=== PATIENT | male | born 1940 | race Caucasian/White ===

== ENCOUNTER 2019-11-27 13:41 | Day surgery (SDC) | payer MEDICARE, OTHER ==
[~2019-11-27] VITALS: Ht 172.7 cm; Wt 97.6 kg
[2019-11-27] VITALS (7 sets, daily range): BP systolic 142–160; BP diastolic 55–72; PULSE 47–58; TEMP 97.6–98
[~2019-11-27 13:41] MED LIST: LIPITOR 10MG10 MG PO; TOPROL XL 25MG25 MG PO
[2019-11-27] MEDS ORDERED: CENTRUM SILVER1 CTB PO (14:09)
[2019-11-27] MEDS ORDERED: PRINIVIL20 MG PO (14:10)
[2019-11-27] MEDS ORDERED: ASPIRIN 81M81 MG/TA2 PO (14:10)
[2019-11-27] MEDS ORDERED: ELIQUIS 2.5 PO (14:11)
[2019-11-27] MEDS ORDERED: OCUVITE1 TA1 PO (14:11)
[2019-11-27] MEDS ORDERED: IRON TABLETS325 MG PO (14:12)
[2019-11-27] MEDS ORDERED: ZYRTEC 10MG10 MG PO (14:13)
[2019-11-27 14:52] LABS: CALCIUM 9.8 mg/dL (8.4-10.2); CREATININE, serum 1.19 (0.66-1.25); POTASSIUM 4.6 mmol/L (3.4-5.0)
--- NOTE | 2019-11-27 17:32 | NUR ---
RECIEVED REPORT ON PT.
--- NOTE | 2019-11-27 17:43 | NUR ---
PT ARRIVED TO FLOOR, AOX4, DENIES PAIN OR DISCOMFORT AT THIS TIME.
--- NOTE | 2019-11-27 17:49 | NUR ---
PT EATING VANILLA PUDDING AND WATER BROUGHT IN AT BEDSIDE. NO OTHER NEEDS AT THIS TIME
--- NOTE | 2019-11-27 18:18 | NUR ---
PT REPORTS PAIN 06/05. EDUCATED PT TO LET US KNOW IF PAIN BEGAN TO INC TO STAY AHEAD OF IT. NO NAUSEA REPORTED WITH EATING PUDDING.
--- NOTE | 2019-11-27 19:37 | NUR ---
Discharge instructions discussed with pt, all questions answered. INT to left forearm removed, tip intact. Pt taken to ED entrance in wheelchair.
== END 2019-11-27 20:20 | disposition home or self-care (01) ==
LOC: SDCO 13:41 → MEDICAL 17:52 → SDCO 20:20
PROVIDERS: Nurse Anesthetist, Certified Registered
DX: N35.912 Unspecified bulbous urethral stricture, male (principal); N48.0 Leukoplakia of penis; I48.91 Unspecified atrial fibrillation; I73.9 Peripheral vascular disease, unspecified; I51.9 Heart disease, unspecified; Z79.01 Long term (current) use of anticoagulants; Z79.82 Long term (current) use of aspirin; Z79.899 Other long term (current) drug therapy; Z90.79 Acquired absence of other genital organ(s); Z96.652 Presence of left artificial knee joint; Z88.1 Allergy status to other antibiotic agents; Z85.51 Personal history of malignant neoplasm of bladder; Z86.73 Personal history of transient ischemic attack (TIA), and cerebral infarction without residual deficits
CPT/HCPCS: OP; J0690; J1100; J1885; J2405; J2704; J3010; J7120